=== PATIENT | male | born 1960 | race Caucasian/White ===

== ENCOUNTER 2024-11-16 11:17 | Outpatient (REF) | payer MEDICARE, SELFPAY | END 2024-11-16 11:18 | disposition home or self-care (01) | LOC: NCHCN 11:17 | PROVIDERS: PCP Internal Medicine; Visit Provider Physician Assistant | DX: R35.0 Frequency of micturition (principal); B96.29 Other Escherichia coli [E. coli] as the cause of diseases classified elsewhere | CPT/HCPCS: 87077; 87086; 87186 ==